=== PATIENT | male | born 1965 | race Caucasian/White ===

== ENCOUNTER 2016-09-05 17:51 | Emergency (ER) | payer MEDICAID ==
[2016-09-05 19:17] VITALS: BP 127/79
--- NOTE | 2016-09-05 20:17 | EDM.PDOCBH ---
ED HPI GENERAL MEDICAL PROBLEM - General Chief Complaint: Behavioral/Psych Stated Complaint: eval Time Seen by Provider: 09/05/16 19:30 Source of Information: Reports: Patient History Limitations: Reports: No Limitations - History of Present Illness INITIAL COMMENTS - FREE TEXT/NARRATIVE: Germain is a 51 year old male with a hx of chronic alcoholism who presents to the ED today for "medical evaluation". Patient reports he has been feeling increasingly "foggy" the last few days but has also been drinking more. Patient drinks roughly one case of beer daily. He does not want to be helped with treatment at this time, he reports he just wants to make sure his blood work looks okay. Patient does endorse a productive cough that has been increasing the last few days, although he smokes 1/2 pack - 1 pack daily. He does report occasional marijuana use, denies any other drug use. - Related Data Allergies Allergy/AdvReac Type Severity Reaction Status Date / Time No Known Allergies Allergy Verified 07/04/14 10:23 Home Meds: Home Meds ARIPiprazole [Abilify] 5 mg PO DAILY 07/03/14 [History] Ibuprofen [Motrin] 800 mg PO ASDIRECTED PRN 07/03/14 [History] busPIRone HCl [Buspirone HCl] 15 mg PO ASDIRECTED 07/03/14 [History] Past Medical History Gastrointestinal History: Reports: GERD - Infectious Disease History Infectious Disease History: Reports: Chicken Pox - Past Surgical History Other Male Surgeries/Procedures: cyst from rectum X2 Other Neurological Surgeries/Procedures: L5-S1? fusion on neck Other Musculoskeletal Surgeries/Procedures:: arthroscopic x3 left ankle Social & Family History - Tobacco Use Smoking Status *Q: Current Every Day Smoker Years of Tobacco use: 32 Packs/Tins Daily: 1.5 Used Tobacco, but Quit: No Second Hand Smoke Exposure: No - Caffeine Use Caffeine Use: Reports: None - Alcohol Use Days Per Week of Alcohol Use: 7 Number of Drinks Per Day: 24 Total Drinks Per Week: 168 Date of Last Drink: 09/05/16 Time of Last Drink: 17:00 - Recreational Drug Use Recreational Drug Use: Yes Drug Use in Last 12 Months: Yes Recreational Drug Type: Reports: Marijuana/Hashish Recreational Drug Use Frequency: Daily ED ROS GENERAL - Review of Systems Review Of Systems: ROS reveals no pertinent complaints other than HPI. ED EXAM, BEHAVIORAL HEALTH - Physical Exam Exam: See Below Exam Limited By: No Limitations General Appearance: Alert, WD/WN, No Apparent Distress Eye Exam: Bilateral Eye: EOMI Ears: Normal External Exam Throat/Mouth: Normal Inspection, Normal Oropharynx Head: Atraumatic Respiratory/Chest: No Respiratory Distress, Lungs Clear, Normal Breath Sounds Cardiovascular: Normal Peripheral Pulses, No Murmur, Tachycardia GI/Abdominal: Normal Bowel Sounds, Soft, Non-Tender Extremities: Normal Inspection Neurological: Alert, Normal Mood/Affect, CN II-XII Intact, Oriented x 3 Psychiatric: Alert, Normal Affect, Normal Cognition, Normal Mood, Oriented Skin Exam: Warm, Dry, Intact COURSE, BEHAVIORAL HEALTH COMP - Course Vital Signs: Last Vital Signs Temp 36.3 C 09/05/16 19:15 Pulse 107 H 09/05/16 19:15 Resp 20 09/05/16 19:15 BP 127/79 09/05/16 19:15 Pulse Ox 95 09/05/16 19:15 Jb is a 51 year old male with known alcoholism who presents to the ED today requesting medical evaluation for increased "fogginess" the last few days. Please refer to HPI and focused exam. Patient on exam smells strongly of ETOH but is alert and oriented and acting very appropriately, he is mildly tachycardic on arrival but is not hypertensive and does not exhibit any signs of withdrawal. Blood work including CBC, CMP and Magnesium obtained and are all rather unremarkable except for a very mildly elevated ALT and AST. CXR also obtained secondary to cough and is negative for any acute lobar infiltrate on my review. I discussed work up with patient who is ready to be discharged home. He is planning on staying with his daughter's mother who wants to help him with his drinking. Patient is well aware of [facility] and has their number if he desires to obtain outside help for his drinking. Patient was instructed he can return to the ED at any time. He verbalizes understanding and left ambulatory with his friend driving in stable condition. Orders, Labs, Meds: Active Orders 24 hr Category Date Time Status Chest 2V [CR] Stat Exams 09/05/16 19:35 Taken Laboratory Tests 09/05/16 09/05/16 09/05/16 Range/Units 19:45 19:45 19:45 WBC 7.6 (4.5-11.0) K/uL RBC 4.79 (4.30-5.90) M/uL Hgb 16.0 H D (12.0-15.0) g/dL Hct 44.5 (40.0-54.0) % MCV 93 (80-98) fL MCH 33 H (27-31) pg MCHC 36 (32-36) % Plt Count 153 (150-400) K/uL Neut % (Auto) 50 (36-66) % Lymph % (Auto) 39 (24-44) % Pitkin % (Auto) 9 H (2-6) % Eos % (Auto) 1 L (2-4) % Baso % (Auto) 1 (0-1) % Sodium 142 (140-148) mmol/L Potassium 3.7 (3.6-5.2) mmol/L Chloride 101 (100-108) mmol/L Carbon Dioxide 27 (21-32) mmol/L Anion Gap 13.8 (5.0-14.0) mmol/L BUN 5 L (7-18) mg/dL Creatinine 0.8 (0.8-1.3) mg/dL Est Cr Clr Drug Dosing 128.40 mL/min Estimated GFR (MDRD) > 60 (>60) Glucose 144 H (74-106) mg/dL Calcium 9.0 (8.5-10.1) mg/dL Magnesium 1.9 (1.8-2.4) mg/dL Total Bilirubin 0.6 (0.2-1.0) mg/dL AST 94 H D (15-37) U/L ALT 121 H (12-78) U/L Alkaline Phosphatase 79 (46-116) U/L Total Protein 9.0 H (6.4-8.2) g/dL Albumin 4.4 (3.4-5.0) g/dL Globulin 4.6 H (2.3-3.5) g/dL Albumin/Globulin Ratio 1.0 L (1.2-2.2) Departure - Departure Time of Disposition: 20:30 Disposition: Home, Self-Care 01 Condition: Good Clinical Impression: Alcohol abuse - Discharge Information Instructions: Alcohol Use Disorder Referrals: Sumit Humphrey Sr, MD [Primary Care Provider] - Forms: ED Department Discharge - My Orders Last 24 Hours: My Active Orders 09/05/16 19:35 Chest 2V [CR] Stat - Assessment/Plan Last 24 Hours: My Active Orders 09/05/16 19:35 Chest 2V [CR] Stat
--- NOTE | 2016-09-06 09:27 | CR ---
Chest 2V FINDINGS: The heart and vascular structures are normal in appearance. No infiltrates or effusions ar e demonstrated. There is a calcified granuloma of the left lower lobe. The skeletal structures are u nremarkable. IMPRESSION: 1. No acute findings.
== END 2016-09-05 20:15 | disposition home or self-care (01) ==
LOC: JP.ED 17:51
DX: F10.20 Alcohol dependence, uncomplicated (principal); F17.200 Nicotine dependence, unspecified, uncomplicated; Z79.899 Other long term (current) drug therapy
CPT/HCPCS: 36415; 71020; 71020-26; 80053; 83735; 85025; 99284

== ENCOUNTER 2018-12-21 04:59 | Emergency (ER) | payer MEDICAID ==
[2018-12-21] MEDS ORDERED: Sodium Chloride 0.9% 10 ML Syringe FLUSH PRN (05:16)
[2018-12-21] MEDS ORDERED: Aspirin 81 MG Tab.Chew PO ONE (05:17)
[2018-12-21] MEDS ORDERED: Metoprolol Tartrate 50 MG Tab PO ONE (05:18)
--- NOTE | 2018-12-21 05:24 | EDM.PDOC ---
ED HPI GENERAL MEDICAL PROBLEM - General Chief Complaint: Cardiovascular Problem Stated Complaint: CHEST PAIN Time Seen by Provider: 12/21/18 05:05 Source of Information: Reports: Patient, Old Records, RN History Limitations: Reports: No Limitations - History of Present Illness INITIAL COMMENTS - FREE TEXT/NARRATIVE: 53 yo male 2 ppd smoker presents with chest pain that he has had for about a year. He has a chronic cough with some sputum production. No fever or SOB. Pain is worse with exertion or lying down. Also, admits to fairly heavy ETOH use. Has not been evaluated for this pain in the past. No calf pain or LE edema. No nausea. Is on no meds. Is unaware of his heart beating fast. Has drank up to a case of beer/day. Smokes marijuana as well as cigarettes. Onset: Other (many months ago, is worse today) Duration: Week(s): (and months), Getting Worse Location: Reports: Chest Quality: Reports: Pressure Severity: Moderate Improves with: Reports: Rest Worsens with: Reports: Other (lying or exertion) Context: Reports: Other (See HPI) Associated Symptoms: Reports: Chest Pain, Cough. 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 fusion on neck Other Musculoskeletal Surgeries/Procedures:: arthroscopic x3 left ankle Social & Family History - Tobacco Use Smoking Status *Q: Current Every Day Smoker Years of Tobacco use: 30 Packs/Tins Daily: 2 - Caffeine Use Caffeine Use: Reports: None - Alcohol Use Date of Last Drink: 12/21/18 Time of Last Drink: 04:15 - Recreational Drug Use Recreational Drug Use: No ED ROS GENERAL - Review of Systems Review Of Systems: See Below Constitutional: Reports: No Symptoms HEENT: Reports: No Symptoms Respiratory: Reports: Cough, Sputum (swallows). Denies: Shortness of Breath, Wheezing, Pleuritic Chest Pain Cardiovascular: Reports: Chest Pain. Denies: Claudication, Dyspnea on Exertion , Edema, Palpitations (unaware), Syncope Endocrine: Reports: No Symptoms GI/Abdominal: Reports: No Symptoms : Reports: No Symptoms Musculoskeletal: Reports: Back Pain (chronic). Denies: Leg Pain Skin: Reports: No Symptoms Neurological: Reports: Numbness (in both feet for about a year). Denies: Confusion, Dizziness, Headache, Seizure, Syncope, Trouble Speaking, Difficulty Walking, Weakness, Change in Speech, Gait Disturbance ED EXAM, GENERAL - Physical Exam Exam: See Below Exam Limited By: No Limitations General Appearance: Alert, WD/WN, No Apparent Distress Eye Exam: Bilateral Eye: Normal Inspection Ears: Normal External Exam, Normal Canal, Hearing Grossly Normal Ear Exam: Bilateral Ear: Auricle Normal, Canal Normal Nose: Normal Inspection, No Blood Throat/Mouth: Normal Inspection, Normal Lips, Normal Oropharynx, Normal Voice, No Airway Compromise Head: Atraumatic, Normocephalic Neck: Normal Inspection Respiratory/Chest: No Respiratory Distress, No Accessory Muscle Use, Chest Non- Tender, Rhonchi (scattered). No: Wheezing, Accessory Muscle Use, Retractions Cardiovascular: Regular Rate, Rhythm, No Edema, Tachycardia GI/Abdominal: Normal Bowel Sounds, Soft, Non-Tender, No Distention Back Exam: Normal Inspection. No: CVA Tenderness (R), CVA Tenderness (L) Extremities: Normal Inspection, Normal Range of Motion, Non-Tender, No Pedal Edema. No: Pedal Edema, Allen's Sign, Leg Pain, Limited Range of Motion, Increased Warmth, Mottled, Redness Neurological: Alert, Oriented, CN II-XII Intact, Normal Cognition, No Motor/ Sensory Deficits Psychiatric: Normal Affect, Normal Mood Skin Exam: Warm, Dry, Intact, Normal Color, No Rash EKG INTERPRETATION EKG Date: 12/21/18 Time: 05:05 Rhythm: NSR Rate (Beats/Min): 122 Trilla: RAD-Right Trilla Deviation P-Wave: Present QRS: Normal ST-T: Depressed (slight depression in anterolateral leads) QT: Normal Comparison: NA - No Prior EKG Course - Vital Signs Text/Narrative:: Pain resolved in the ER with no tx and no change in his underlying tachycardia. Dr. 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 accepted @ [facility] [place], [facility] [place] Last Recorded V/S: Last Vital Signs Temp 37.1 C 12/21/18 05:17 Pulse 95 12/21/18 06:10 Resp 18 12/21/18 06:10 BP 147/90 H 12/21/18 06:10 Pulse Ox 92 L 12/21/18 06:10 - Orders/Labs/Meds Orders: Active Orders 24 hr Category Date Time Status Cardiac Monitoring [RC] .As Directed Care 12/21/18 05:17 Active EKG Documentation Completion [RC] ASDIRECTED Care 12/21/18 05:17 Active Chest 2V [CR] Stat Exams 12/21/18 05:18 Taken Heparin Sodium/D5W [Heparin 25,000 Units in D5W 500 ML] Med 12/21/18 07:00 Ordered 25,000 units in 500 ml IV TITRATE Sodium Chloride 0.9% [Saline Flush] Med 12/21/18 05:16 Active 10 ml FLUSH ASDIRECTED PRN Saline Lock Insert [OM.PC] Routine Oth 12/21/18 05:16 Ordered EKG 12 Lead [EK] Routine Ther 12/21/18 05:16 Ordered Medication Orders Heparin Sodium/Dextrose (Heparin 25,000 Units In D5w 500 Ml) 25,000 units in 500 mls @ 900 mls/hr IV TITRATE YANY Sodium Chloride (Saline Flush) 10 ml FLUSH ASDIRECTED PRN PRN Reason: Keep Vein Open Last Admin: 12/21/18 05:24 Dose: 10 ml Labs: Laboratory Tests 12/21/18 12/21/18 12/21/18 Range/Units 05:18 05:18 05:18 WBC 17.2 H (4.5-11.0) K/uL RBC 4.30 (4.30-5.90) M/uL Hgb 13.3 D (12.0-15.0) g/dL Hct 38.7 L (40.0-54.0) % MCV 90 (80-98) fL MCH 31 (27-31) pg MCHC 34 (32-36) % Plt Count 142 L (150-400) K/uL D-Dimer, Quantitative 280 (0.0-400.0) ng/mL Sodium 137 L (140-148) mmol/L Potassium 3.8 (3.6-5.2) mmol/L Chloride 100 (100-108) mmol/L Carbon Dioxide 24 (21-32) mmol/L Anion Gap 16.8 H (5.0-14.0) mmol/L BUN 7 (7-18) mg/dL Creatinine 0.7 L (0.8-1.3) mg/dL Est Cr Clr Drug Dosing 144.19 mL/min Estimated GFR (MDRD) > 60 (>60) Glucose 121 H (74-106) mg/dL Calcium 9.4 (8.5-10.1) mg/dL Troponin I < 0.017 (0.000-0.056) ng/mL C-Reactive Protein (0.0-0.3) mg/dL 12/21/18 Range/Units 06:31 WBC (4.5-11.0) K/uL RBC (4.30-5.90) M/uL Hgb (12.0-15.0) g/dL Hct (40.0-54.0) % MCV (80-98) fL MCH (27-31) pg MCHC (32-36) % Plt Count (150-400) K/uL D-Dimer, Quantitative (0.0-400.0) ng/mL Sodium (140-148) mmol/L Potassium (3.6-5.2) mmol/L Chloride (100-108) mmol/L Carbon Dioxide (21-32) mmol/L Anion Gap (5.0-14.0) mmol/L BUN (7-18) mg/dL Creatinine (0.8-1.3) mg/dL Est Cr Clr Drug Dosing mL/min Estimated GFR (MDRD) (>60) Glucose (74-106) mg/dL Calcium (8.5-10.1) mg/dL Troponin I (0.000-0.056) ng/mL C-Reactive Protein 5.43 H (0.0-0.3) mg/dL Meds: Medications Generic Name Dose Route Start Last Admin Trade Name Freq PRN Reason Stop Dose Admin Heparin Sodium/Dextrose 25,000 units in 500 mls @ 900 mls/hr 12/21/18 07:00 Heparin 25,000 Units In D5w 500 Ml IV TITRATE YANY Sodium Chloride 10 ml 12/21/18 05:16 12/21/18 05:24 Saline Flush FLUSH 10 ml ASDIRECTED PRN Administration Keep Vein Open Discontinued Medications Generic Name Dose Route Start Last Admin Trade Name Eboni PRN Reason Stop Dose Admin Aspirin 324 mg 12/21/18 05:17 12/21/18 05:24 Aspirin PO 12/21/18 05:18 324 mg ONETIME ONE Administration Clopidogrel Bisulfate 600 mg 12/21/18 06:58 Plavix PO 12/21/18 06:59 ONETIME ONE Heparin Sodium (Porcine) 4,000 units 12/21/18 06:59 Heparin Sodium IVPUSH 12/21/18 07:00 ONETIME ONE Metoprolol Tartrate 50 mg 12/21/18 05:18 12/21/18 05:23 Lopressor PO 12/21/18 05:19 50 mg ONETIME ONE Administration - Radiology Interpretation Free Text/Narrative:: CXR- Departure - Departure Time of Disposition: 07:03 Disposition: DC/Tfer to Acute Hospital 02 Reason for Transfer *Q: Other Condition: Fair Clinical Impression: Exertional chest pain Referrals: PCP,None [Primary Care Provider] - Forms: ED Department Discharge Additional Instructions: ALS transfer to [facility] - My Orders Last 24 Hours: My Active Orders 12/21/18 05:16 Sodium Chloride 0.9% [Saline Flush] 10 ml FLUSH ASDIRECTED PRN Saline Lock Insert [OM.PC] Routine EKG 12 Lead [EK] Routine 12/21/18 05:17 Cardiac Monitoring [RC] .As Directed EKG Documentation Completion [RC] ASDIRECTED 12/21/18 05:18 Chest 2V [CR] Stat 12/21/18 07:00 Heparin Sodium/D5W [Heparin 25,000 Units in D5W 500 ML] 25,000 units in 500 ml IV TITRATE - Assessment/Plan Last 24 Hours: My Active Orders 12/21/18 05:16 Sodium Chloride 0.9% [Saline Flush] 10 ml FLUSH ASDIRECTED PRN Saline Lock Insert [OM.PC] Routine EKG 12 Lead [EK] Routine 12/21/18 05:17 Cardiac Monitoring [RC] .As Directed EKG Documentation Completion [RC] ASDIRECTED 12/21/18 05:18 Chest 2V [CR] Stat 12/21/18 07:00 Heparin Sodium/D5W [Heparin 25,000 Units in D5W 500 ML] 25,000 units in 500 ml IV TITRATE
[2018-12-21] MEDS ORDERED: Clopidogrel 75 MG Tab PO ONE (06:58)
[2018-12-21] MEDS ORDERED: Heparin Sodium 5,000 Units/ML Vial IVPUSH ONE (06:59)
[2018-12-21] MEDS ORDERED: Heparin Sodium/D5W 25,000 UNITS/500 ML BAG IV SCH ×2 (07:00→07:15)
[2018-12-21 07:25] VITALS: BP 125/80; PULSE 92
--- NOTE | 2018-12-21 08:01 | CRLCR ---
Indication: Chest pain. Technique: Chest 2 views Comparison: 09/05/2016. Findings: Cardiomediastinal silhouette is unremarkable. Stable calcified granuloma in the left lung base. No focal lung consolidation, pleural effusion or pneumothorax. Cardiac leads overlie the chest. Impression: No acute cardiopulmonary abnormality. Dictated by Wayne Schofield MD @ Dec 21 2018 7:58AM Signed by Dr. Wayne Schofield @ Dec 21 2018 8:00AM
== END 2018-12-21 07:46 ==
LOC: JP.ED 04:59
DX: R07.89 Other chest pain (principal); F17.210 Nicotine dependence, cigarettes, uncomplicated
CPT/HCPCS: 36415; 71046; 80048; 84484; 85027; 85379; 86140; 93005; 96374; 99285; A9270; J1644

== ENCOUNTER 2019-06-08 10:25 | Emergency (ER) | payer MEDICAID ==
--- NOTE | 2019-06-08 10:47 | EDM.PDOC ---
ED HPI GENERAL MEDICAL PROBLEM - General Chief Complaint: Chest Pain Stated Complaint: CHEST PAIN VIA [facility]TH Time Seen by Provider: 06/08/19 10:35 Source of Information: Reports: Patient, EMS, Old Records History Limitations: Reports: No Limitations - History of Present Illness INITIAL COMMENTS - FREE TEXT/NARRATIVE: 54 yo male presents with R lateral chest pain that began about 0300h today as he was getting ready for bed. Sx's worse with lying down. Some increased SOB with lying also. No fever. No nausea, diaphoresis or radiation. No injury to this area. Has a known hx of CAD with CABG x 4 vessels in [facility] this past 12/2018. Is still smoking. Has had these same sx's for about a mos on and off and has not done anything about it. Called EMS today due to these sx's persisting longer than in the past. EMS gave NTG SL x 1 with a reduction in his pain, but not resolution. Does not have NTG at home. Onset: Today, Sudden Onset Date: 06/08/19 Onset Time: 03:00 Duration: Hour(s):, Improving (on arrival after NTG) Location: Reports: Chest (right lateral) Quality: Reports: Dull Severity: Mild (was worse earlier) Improves with: Reports: Medication (NTG) Worsens with: Reports: Other (unknown, getting worse over time) Context: Reports: Other (See HPI) Associated Symptoms: Reports: Chest Pain (R lateral), Shortness of Breath ( especially orthopnea). Denies: Cough, Diaphoresis, Fever/Chills, Nausea/ Vomiting, Rash Treatments [employer]: Reports: Nitroglycerin Chest Pain Score (Numeric/FACES): 3 - Related Data Allergies Allergy/AdvReac Type Severity Reaction Status Date / Time No Known Allergies Allergy Verified 06/08/19 10:42 Home Meds: Home Meds Folic Acid 1 mg PO DAILY 06/08/19 [History] Metoprolol Tartrate 75 mg PO BID 06/08/19 [History] Pramipexole [Mirapex] 1 tab PO ASDIRECTED 06/08/19 [History] atorvaSTATin [Lipitor] 40 mg PO BEDTIME 06/08/19 [History] Past Medical History Cardiovascular History: Reports: Hypertension, SOB on Exertion Respiratory History: Reports: SOB Gastrointestinal History: Reports: GERD Musculoskeletal History: Reports: Neck Pain, Chronic Neurological History: Reports: Head Trauma Psychiatric History: Reports: Addiction, Anxiety, Depression, Other (See Below) Other Psychiatric History: ETOH - Infectious Disease History Infectious Disease History: Reports: Chicken Pox - Past Surgical History Other Male Surgeries/Procedures: cyst from rectum X2 Other Neurological Surgeries/Procedures: L5-S1? fusion on neck Other Musculoskeletal Surgeries/Procedures:: arthroscopic x3 left ankle Social & Family History - Caffeine Use Caffeine Use: Reports: None ED ROS GENERAL - Review of Systems Review Of Systems: See Below Constitutional: Reports: No Symptoms HEENT: Reports: No Symptoms Respiratory: Reports: Shortness of Breath (mostly with lying, mild) Cardiovascular: Reports: Chest Pain, Orthopnea. Denies: Dyspnea on Exertion, Edema, Palpitations Endocrine: Reports: No Symptoms GI/Abdominal: Reports: No Symptoms : Reports: No Symptoms Musculoskeletal: Reports: No Symptoms Skin: Reports: No Symptoms Neurological: Reports: No Symptoms ED EXAM, GENERAL - Physical Exam Exam: See Below Exam Limited By: No Limitations General Appearance: Alert, WD/WN, No Apparent Distress Eye Exam: Bilateral Eye: Normal Inspection Ears: Normal External Exam, Normal Canal, Hearing Grossly Normal Ear Exam: Bilateral Ear: Auricle Normal, Canal Normal Nose: Normal Inspection, No Blood Throat/Mouth: Normal Inspection, Normal Lips, Normal Oropharynx, Normal Voice, No Airway Compromise Head: Atraumatic, Normocephalic Neck: Normal Inspection Respiratory/Chest: No Respiratory Distress, No Accessory Muscle Use, Rhonchi ( both lung bases), Other (no chest wall pain). No: Respiratory Distress, Wheezing, Accessory Muscle Use, Retractions Cardiovascular: Regular Rate, Rhythm, No Edema GI/Abdominal: Normal Bowel Sounds, Soft, Non-Tender, No Distention Back Exam: Normal Inspection. No: CVA Tenderness (R), CVA Tenderness (L) Extremities: Normal Inspection, Normal Range of Motion, Non-Tender, No Pedal Edema Neurological: Alert, Oriented, CN II-XII Intact, Normal Cognition, No Motor/ Sensory Deficits Psychiatric: Normal Affect, Normal Mood Skin Exam: Warm, Dry, Intact, Normal Color, No Rash EKG INTERPRETATION EKG Date: 06/08/19 Time: 10:50 Rhythm: NSR Rate (Beats/Min): 58 [place]: Normal P-Wave: Present QRS: RBBB ST-T: Normal QT: Normal Comparison: Change From Previous EKG (Subtle ST elevation III, AVF. ST subtle depression II.) Course - Vital Signs Last Recorded V/S: Last Vital Signs Temp 36.3 C 06/08/19 10:44 Pulse 51 L 06/08/19 11:28 Resp 16 06/08/19 11:28 BP 109/67 06/08/19 11:28 Pulse Ox 96 06/08/19 11:28 - Orders/Labs/Meds Orders: Active Orders 24 hr Category Date Time Status Cardiac Monitoring [RC] .As Directed Care 06/08/19 10:34 Active EKG Documentation Completion [RC] ASDIRECTED Care 06/08/19 10:34 Active UA W/MICROSCOPIC [URIN] Stat Lab 06/08/19 10:41 Ordered EKG 12 Lead [EK] Routine Ther 06/08/19 10:34 Ordered Labs: Laboratory Tests 06/08/19 06/08/19 06/08/19 Range/Units 11:00 11:00 11:00 WBC 15.5 H (4.5-11.0) K/uL RBC 4.06 L (4.30-5.90) M/uL Hgb 12.8 (12.0-15.0) g/dL Hct 39.4 L (40.0-54.0) % MCV 97 (80-98) fL MCH 32 H (27-31) pg MCHC 33 (32-36) % Plt Count 192 (150-400) K/uL D-Dimer, Quantitative 268 (0.0-400.0) ng/mL Sodium 138 L (140-148) mmol/L Potassium 3.9 (3.6-5.2) mmol/L Chloride 102 (100-108) mmol/L Carbon Dioxide 23 (21-32) mmol/L Anion Gap 16.9 H (5.0-14.0) mmol/L BUN 11 D (7-18) mg/dL Creatinine 0.7 L (0.8-1.3) mg/dL Est Cr Clr Drug Dosing 142.51 mL/min Estimated GFR (MDRD) > 60 (>60) Glucose 126 H (74-106) mg/dL Calcium 8.3 L (8.5-10.1) mg/dL Troponin I < 0.017 (0.000-0.056) ng/mL NT-Pro-B Natriuret Pep (5-125) pg/mL Ethyl Alcohol mg/dL 06/08/19 06/08/19 Range/Units 11:04 11:04 WBC (4.5-11.0) K/uL RBC (4.30-5.90) M/uL Hgb (12.0-15.0) g/dL Hct (40.0-54.0) % MCV (80-98) fL MCH (27-31) pg MCHC (32-36) % Plt Count (150-400) K/uL D-Dimer, Quantitative (0.0-400.0) ng/mL Sodium (140-148) mmol/L Potassium (3.6-5.2) mmol/L Chloride (100-108) mmol/L Carbon Dioxide (21-32) mmol/L Anion Gap (5.0-14.0) mmol/L BUN (7-18) mg/dL Creatinine (0.8-1.3) mg/dL Est Cr Clr Drug Dosing mL/min Estimated GFR (MDRD) (>60) Glucose (74-106) mg/dL Calcium (8.5-10.1) mg/dL Troponin I (0.000-0.056) ng/mL NT-Pro-B Natriuret Pep 44 (5-125) pg/mL Ethyl Alcohol 246 mg/dL Meds: Medications Discontinued Medications Generic Name Dose Route Start Last Admin Trade Name Freq PRN Reason Stop Dose Admin Aspirin 324 mg 06/08/19 10:48 06/08/19 10:52 Aspirin PO 06/08/19 10:49 324 mg ONETIME ONE Administration Ketorolac Tromethamine 30 mg 06/08/19 11:48 06/08/19 11:57 Toradol IVPUSH 06/08/19 11:49 30 mg ONETIME ONE Administration - Radiology Interpretation Free Text/Narrative:: CXR-IMPRESSION: No acute chest findings and no change. Dictated by Lakhwinder Norris MD @ Jun 08 2019 12:01PM - Re-Assessments/Exams Free Text/Narrative Re-Assessment/Exam: 06/08/19 12:19 Sleeping soundly Free Text/Narrative Re-Assessment/Exam: 06/08/19 12:38 Sx's now gone. Departure - Departure Time of Disposition: 12:40 Disposition: Home, Self-Care 01 Condition: Fair Clinical Impression: Tobacco abuse, Atypical chest pain Alcohol intoxication Qualifiers: Complication of substance-induced condition: with unspecified complication Qualified Code(s): F10.929 - Alcohol use, unspecified with intoxication, unspecified Instructions: Alcohol Intoxication, [id number], Nonspecific Chest Pain, Adult , [id number], Steps to Quit Smoking Referrals: PCP,None [Primary Care Provider] - Forms: ED Department Discharge Additional Instructions: Continue your regular medications. Take acetaminophen 1000 mg every 6 hrs as needed for pain relief. F/U with Dr. Pollock within the week. Return if worse. Sepsis Event Note - Focused Exam Vital Signs: Vital Signs Temp Pulse Resp BP Pulse Ox 06/08/19 11:28 51 L 16 109/67 96 06/08/19 10:57 55 L 16 118/70 96 06/08/19 10:44 36.3 C 58 L 16 105/48 L 94 L 06/08/19 10:35 36.3 C 58 L 16 105/48 L 94 L Date Exam was Performed: 06/08/19 Time Exam was Performed: 12:38 - My Orders Last 24 Hours: My Active Orders 06/08/19 10:34 Cardiac Monitoring [RC] .As Directed EKG Documentation Completion [RC] ASDIRECTED EKG 12 Lead [EK] Routine 06/08/19 10:41 UA W/MICROSCOPIC [URIN] Stat - Assessment/Plan Last 24 Hours: My Active Orders 06/08/19 10:34 Cardiac Monitoring [RC] .As Directed EKG Documentation Completion [RC] ASDIRECTED EKG 12 Lead [EK] Routine 06/08/19 10:41 UA W/MICROSCOPIC [URIN] Stat
[2019-06-08] MEDS ORDERED: Aspirin 81 MG Tab.Chew PO ONE (10:48)
[2019-06-08] MEDS ORDERED: Ketorolac 30 MG/ML SDV IVPUSH ONE (11:48)
--- NOTE | 2019-06-08 12:04 | CRLCR ---
TECHNIQUE: PA and lateral chest. INDICATION: Chest pain. COMPARISON: 12/21/2018 chest x-ray. FINDINGS: Lungs are clear. Benign calcified granuloma in the left lower lobe. Heart size and pulmonary vascularity are normal. Sternotomy. No effusion or pneumothorax. IMPRESSION: No acute chest findings and no change. Dictated by Lakhwinder Norris MD @ Jun 08 2019 12:01PM Signed by Dr. Lakhwinder Norris @ Jun 08 2019 12:02PM
[2019-06-08 13:18] VITALS: BP 119/75; PULSE 68
== END 2019-06-08 13:29 | disposition home or self-care (01) ==
LOC: JP.ED 10:31
DX: R07.89 Other chest pain (principal); F10.129 Alcohol abuse with intoxication, unspecified; Y90.8 Blood alcohol level of 240 mg/100 ml or more; F17.200 Nicotine dependence, unspecified, uncomplicated; K21.9 Gastro-esophageal reflux disease without esophagitis; I10 Essential (primary) hypertension; Z79.899 Other long term (current) drug therapy
CPT/HCPCS: 36415; 71046; 80048; 80307; 83880; 84484; 85027; 85379; 93005; 96374; 99285; A9270; J1885

== ENCOUNTER 2020-09-25 16:47 | Emergency (ER) | payer MEDICAID ==
[2020-09-25] MEDS ORDERED: Pseudoephedrine 30 MG Tab PO ONE (18:03)
--- NOTE | 2020-09-25 18:06 | EDM.PDOC ---
ED HPI GENERAL MEDICAL PROBLEM - General Stated Complaint: EAR INFECTION Time Seen by Provider: 09/25/20 17:57 Source of Information: Reports: Patient, RN Notes Reviewed History Limitations: Reports: No Limitations - History of Present Illness INITIAL COMMENTS - FREE TEXT/NARRATIVE: 55-year-old gentleman presents emergency department today complaint of ear pain and fullness, he was recently treated for an ear infection treated with amoxicillin for 7-day course he does admit to using heavy use of alcohol he is trying to stop and dry out from the alcohol has not had a drink yet today. He states he feels congested has some dizziness feels like his equilibrium is off does hear his ears popping when he yawns he has tried allergy pills without any relief - Related Data Allergies Allergy/AdvReac Type Severity Reaction Status Date / Time No Known Allergies Allergy Verified 06/27/20 08:11 Home Meds: Home Meds Folic Acid 1 mg PO DAILY 06/08/19 [History] Metoprolol Tartrate 50 mg PO BID 06/08/19 [History] Pramipexole [Mirapex] 1 tab PO ASDIRECTED 06/08/19 [History] atorvaSTATin [Lipitor] 40 mg PO BEDTIME 06/08/19 [History] Albuterol Sulfate [Proair Hfa] 2 puff IH Q4H PRN 06/27/20 [History] Aspirin 325 mg PO DAILY 06/27/20 [History] Cyanocobalamin (Vitamin B-12) [Vitamin B-12] 250 mcg PO DAILY 06/27/20 [History] Ibuprofen 800 mg PO Q8H PRN 06/27/20 [History] Melatonin 3 mg PO BEDTIME PRN 06/27/20 [History] Omeprazole Magnesium [Prilosec Otc] 20 mg PO QAM 06/27/20 [History] Ondansetron [Ondansetron ODT] 4 mg PO Q8HR PRN 06/27/20 [History] Sucralfate [Carafate] 1 gm PO ACBED 06/27/20 [History] Thiamine [Vitamin B-1] 100 mg PO BEDTIME 06/27/20 [History] diazePAM [Valium] 10 mg PO ASDIRECTED PRN 06/27/20 [History] Past Medical History Cardiovascular History: Reports: Hypertension, SOB on Exertion Respiratory History: Reports: SOB Gastrointestinal History: Reports: GERD Musculoskeletal History: Reports: Neck Pain, Chronic Neurological History: Reports: Head Trauma Psychiatric History: Reports: Addiction, Anxiety, Depression, Other (See Below) Other Psychiatric History: ETOH - Infectious Disease History Infectious Disease History: Reports: Chicken Pox - Past Surgical History Other Male Surgeries/Procedures: cyst from rectum X2 Other Neurological Surgeries/Procedures: L5-S1? fusion on neck Other Musculoskeletal Surgeries/Procedures:: arthroscopic x3 left ankle Social & Family History - Caffeine Use Caffeine Use: Reports: None ED ROS ENT - Review of Systems Review Of Systems: See Below Constitutional: Denies: Fever, Chills HEENT: Reports: Ear Pain, Sinus Problem Respiratory: Reports: No Symptoms Cardiovascular: Reports: No Symptoms GI/Abdominal: Reports: No Symptoms Psychiatric: Reports: Other (Alcohol abuse and dependence) ED EXAM, ENT - Physical Exam Exam: See Below Exam Limited By: No Limitations General Appearance: Alert, WD/WN, No Apparent Distress Ears: Normal External Exam, Normal Canal, Hearing Grossly Normal, Normal TMs Nose: Normal Inspection, Normal Mucousa, No Blood Mouth/Throat: Normal Inspection, Normal Gums, Normal Lips, Normal Oropharynx, Normal Teeth Head: Atraumatic, Normocephalic Neck: Normal Inspection, Supple, Non-Tender, Full Range of Motion Respiratory/Chest: No Respiratory Distress, Lungs Clear, Normal Breath Sounds, No Accessory Muscle Use, Chest Non-Tender Cardiovascular: Tachycardia Course - Vital Signs Last Recorded V/S: Last Vital Signs Temp 98.1 F 09/25/20 17:13 Pulse 120 H 09/25/20 17:13 Resp 16 09/25/20 17:13 BP 154/100 H 09/25/20 17:13 Pulse Ox 95 09/25/20 17:13 Departure - Departure Time of Disposition: 18:06 Disposition: Home, Self-Care 01 Condition: Fair Clinical Impression: Sinus congestion - Discharge Information Referrals: Wayne Pollock MD [Primary Care Provider] - Additional Instructions: Try the pseudoephedrine at home, please followup with your primary care provider in 3-5 days if not better, please call return to the emergency department with worsening of symptoms. Sepsis Event Note (ED) - Focused Exam Vital Signs: Vital Signs Temp Pulse Resp BP Pulse Ox 09/25/20 17:13 98.1 F 120 H 16 154/100 H 95 - Assessment/Plan Plan: Assessment Acuity = acute Site and laterality = sinus congestion Etiology = unknown Manifestations = dizziness Location of injury = Home Lab values = none Plan Like to try empiric treatment with pseudoephedrine for the next couple days follow-up primary care 3 to 5 days if no improvement. I recommend continue to try and wean off alcohol This note was dictated using [employer] voice recognition software please call with any questions on syntax or grammar.
[2020-09-25 18:21] VITALS: BP 156/92
[2020-09-25 18:27] VITALS: PULSE 101
== END 2020-09-25 18:35 | disposition home or self-care (01) ==
LOC: JP.ED 16:47
DX: J34.89 Other specified disorders of nose and nasal sinuses (principal); I10 Essential (primary) hypertension; K21.9 Gastro-esophageal reflux disease without esophagitis; Z79.82 Long term (current) use of aspirin; Z79.899 Other long term (current) drug therapy
CPT/HCPCS: 99283; A9270

== ENCOUNTER 2021-01-02 23:31 | Emergency (ER) | payer MEDICAID ==
[2021-01-03] MEDS ORDERED: MVI, Adult with Vitamin K 10 ML, Thiamine 100 MG, Folic Acid 1 MG, Magnesium Sulfate 3 ... IV SCH ×5 (00:15)
--- NOTE | 2021-01-03 00:21 | EDM.PDOC ---
ED HPI GENERAL MEDICAL PROBLEM - General Chief Complaint: Neurological Problem Stated Complaint: POSSIBLE STROKE? Time Seen by Provider: 01/02/21 23:50 Source of Information: Reports: Patient, Family History Limitations: Reports: No Limitations - History of Present Illness INITIAL COMMENTS - FREE TEXT/NARRATIVE: 55-year-old male arrives with a variety of complaints including intermittent visual problems, dizziness, unsteadiness when walking, persistent nausea and wretching. The visual complaints and dizziness and unsteadiness has been for the past 2 days, he is also complaining of some intermittent chest pain for the past 2 days. He is a chronic alcoholic and has been drinking daily for the past 2 weeks, also been using methamphetamine. He does have significant coronary artery disease however and received a four-vessel bypass surgery 2 years ago. Continues to drink because he detoxes "very bad". Onset: Unknown/Unsure Duration: Waxing/Waning (Symptoms have been waxing and waning for at least the last 2 days and up to the last 2 weeks) Associated Symptoms: Reports: Confusion, Chest Pain, Cough, Headaches, Malaise, Nausea/Vomiting, Shortness of Breath, Weakness, Other (Almost everything in his review of systems other than fever is positive) Middle Mid-Sternal Chest Pain Score (Numeric/FACES): 4 - Related Data Allergies Allergy/AdvReac Type Severity Reaction Status Date / Time No Known Allergies Allergy Verified 01/02/21 23:43 Home Meds: Home Meds Folic Acid 1 mg PO DAILY 06/08/19 [History] Metoprolol Tartrate 50 mg PO BID 06/08/19 [History] Pramipexole [Mirapex] 1 tab PO ASDIRECTED 06/08/19 [History] atorvaSTATin [Lipitor] 40 mg PO BEDTIME 06/08/19 [History] Albuterol Sulfate [Proair Hfa] 2 puff IH Q4H PRN 06/27/20 [History] Aspirin 325 mg PO DAILY 06/27/20 [History] Cyanocobalamin (Vitamin B-12) [Vitamin B-12] 250 mcg PO DAILY 06/27/20 [History] Ibuprofen 800 mg PO Q8H PRN 06/27/20 [History] Melatonin 3 mg PO BEDTIME PRN 06/27/20 [History] Omeprazole Magnesium [Prilosec Otc] 20 mg PO QAM 06/27/20 [History] Ondansetron [Ondansetron ODT] 4 mg PO Q8HR PRN 06/27/20 [History] Sucralfate [Carafate] 1 gm PO ACBED 06/27/20 [History] Thiamine [Vitamin B-1] 100 mg PO BEDTIME 06/27/20 [History] diazePAM [Valium] 10 mg PO ASDIRECTED PRN 06/27/20 [History] Past Medical History Cardiovascular History: Reports: Hypertension, SOB on Exertion Respiratory History: Reports: SOB Gastrointestinal History: Reports: GERD Musculoskeletal History: Reports: Neck Pain, Chronic Neurological History: Reports: Head Trauma Psychiatric History: Reports: Addiction, Anxiety, Depression, Other (See Below) Other Psychiatric History: ETOH - Infectious Disease History Infectious Disease History: Reports: Chicken Pox - Past Surgical History HEENT Surgical History: Reports: Naso-Sinus Surgery Cardiovascular Surgical History: Reports: Coronary Artery Bypass Other Male Surgeries/Procedures: cyst from rectum X2 Neurological Surgical History: Reports: Spinal Fusion Other Neurological Surgeries/Procedures: L5-S1? fusion on neck Musculoskeletal Surgical History: Reports: Other (See Below) Other Musculoskeletal Surgeries/Procedures:: arthroscopic x3 left ankle Social & Family History - Tobacco Use Tobacco Use Status *Q: Current Every Day Tobacco User Years of Tobacco use: 40 Packs/Tins Daily: 1 - Caffeine Use Caffeine Use: Reports: Soda - Alcohol Use Days Per Week of Alcohol Use: 7 Number of Drinks Per Day: 12 Total Drinks Per Week: 84 - Recreational Drug Use Recreational Drug Use: Yes Drug Use in Last 12 Months: Yes Recreational Drug Type: Reports: Marijuana/Hashish, Methamphetamine Recreational Drug Use Frequency: Daily ED ROS GENERAL - Review of Systems Review Of Systems: See Below Constitutional: Reports: Malaise, Decreased Appetite. Denies: Fever, Chills HEENT: Reports: Vision Change (Intermittent blurriness) Respiratory: Reports: Shortness of Breath Cardiovascular: Reports: Chest Pain, Lightheadedness. Denies: Palpitations GI/Abdominal: Reports: Nausea, Vomiting. Denies: Diarrhea : Reports: No Symptoms Skin: Reports: Other (Diaphoretic easily, bruises easily) Neurological: Reports: Dizziness, Headache, Other (Blurry vision) ED EXAM, GENERAL - Physical Exam Exam: See Below Exam Limited By: No Limitations General Appearance: Alert, No Apparent Distress Eye Exam: Bilateral Eye: Conjunctival Injection, EOMI, PERRL Head: Atraumatic Neck: Supple, Non-Tender Respiratory/Chest: Wheezing (Patient has a few scattered expiratory wheezes but good air movement, no basilar rales or rhonchi) Cardiovascular: Regular Rate, Rhythm, No Murmur, Tachycardia GI/Abdominal: Soft, Non-Tender Extremities: No: Pedal Edema Neurological: Alert, Oriented, No Motor/Sensory Deficits Psychiatric: Normal Affect, Normal Mood Skin Exam: Warm, Dry #1 Interpretation EKG Date: 01/02/21 Rhythm: NSR Rate (Beats/Min): 120 QRS: Normal ST-T: Other (Borderline ST elevation in the inferior leads that is consistent with his previous EKG done here within the last 2 years) QT: Normal (QT is borderline) Course - Vital Signs Last Recorded V/S: Last Vital Signs Temp 97.6 F 01/02/21 23:50 Pulse 105 H 01/02/21 23:50 Resp 20 01/02/21 23:50 BP 140/83 01/02/21 23:50 Pulse Ox 93 L 01/02/21 23:50 - Orders/Labs/Meds Orders: Active Orders 24 hr Category Date Time Status Isolation [COMM] Stat Oth 01/03/21 00:21 Ordered EKG 12 Lead [EK] Routine Ther 01/03/21 00:10 Ordered Labs: Laboratory Tests 01/03/21 01/03/21 01/03/21 Range/Units 00:05 00:05 00:05 WBC 9.1 (4.5-11.0) K/uL RBC 4.28 L (4.30-5.90) M/uL Hgb 14.0 (12.0-15.0) g/dL Hct 41.1 (40.0-54.0) % MCV 96 (80-98) fL MCH 33 H (27-31) pg MCHC 34 (32-36) % Plt Count 190 (150-400) K/uL Neut % (Auto) 73.4 H (36-66) % Lymph % (Auto) 16.2 L (24-44) % Wagoner % (Auto) 8.7 H (2-6) % Eos % (Auto) 1.3 L (2-4) % Baso % (Auto) 0.4 (0-1) % Sodium 136 L (140-148) mmol/L Potassium 3.7 (3.6-5.2) mmol/L Chloride 98 L (100-108) mmol/L Carbon Dioxide 20 L (21-32) mmol/L Anion Gap 21.7 H (5.0-14.0) mmol/L BUN 20 H D (7-18) mg/dL Creatinine 0.9 (0.8-1.3) mg/dL Est Cr Clr Drug Dosing 109.54 mL/min Estimated GFR (MDRD) > 60 (>60) Glucose 110 H (74-106) mg/dL Calcium 8.9 (8.5-10.1) mg/dL Total Bilirubin 2.0 H D (0.2-1.0) mg/dL AST 89 H (15-37) U/L ALT 50 (12-78) U/L Alkaline Phosphatase 67 (46-116) U/L Troponin I < 0.017 (0.000-0.056) ng/mL Total Protein 8.1 (6.4-8.2) g/dL Albumin 4.2 (3.4-5.0) g/dL Globulin 3.9 H (2.3-3.5) g/dL Albumin/Globulin Ratio 1.1 L (1.2-2.2) Urine Opiates Screen (NEGATIVE) Ur Oxycodone Screen (NEGATIVE) Urine Methadone Screen (NEGATIVE) Ur Propoxyphene Screen (NEGATIVE) Ur Barbiturates Screen (NEGATIVE) Ur Tricyclics Screen (NEGATIVE) Ur Phencyclidine Scrn (NEGATIVE) Ur Amphetamine Screen (NEGATIVE) U Methamphetamines Scrn (NEGATIVE) Urine MDMA Screen (NEGATIVE) U Benzodiazepines Scrn (NEGATIVE) U Cocaine Metab Screen (NEGATIVE) U Marijuana (THC) Screen (NEGATIVE) Ethyl Alcohol mg/dL Influenza Type A RNA (NEGATIVE) RSV RNA (INAAT) (NEGATIVE) Influenza Type B RNA (NEGATIVE) SARS-CoV-2 RNA (PAO) (NEGATIVE) 01/03/21 01/03/21 01/03/21 Range/Units 00:05 00:21 01:30 WBC (4.5-11.0) K/uL RBC (4.30-5.90) M/uL Hgb (12.0-15.0) g/dL Hct (40.0-54.0) % MCV (80-98) fL MCH (27-31) pg MCHC (32-36) % Plt Count (150-400) K/uL Neut % (Auto) (36-66) % Lymph % (Auto) (24-44) % Wagoner % (Auto) (2-6) % Eos % (Auto) (2-4) % Baso % (Auto) (0-1) % Sodium (140-148) mmol/L Potassium (3.6-5.2) mmol/L Chloride (100-108) mmol/L Carbon Dioxide (21-32) mmol/L Anion Gap (5.0-14.0) mmol/L BUN (7-18) mg/dL Creatinine (0.8-1.3) mg/dL Est Cr Clr Drug Dosing mL/min Estimated GFR (MDRD) (>60) Glucose (74-106) mg/dL Calcium (8.5-10.1) mg/dL Total Bilirubin (0.2-1.0) mg/dL AST (15-37) U/L ALT (12-78) U/L Alkaline Phosphatase (46-116) U/L Troponin I (0.000-0.056) ng/mL Total Protein (6.4-8.2) g/dL Albumin (3.4-5.0) g/dL Globulin (2.3-3.5) g/dL Albumin/Globulin Ratio (1.2-2.2) Urine Opiates Screen Negative (NEGATIVE) Ur Oxycodone Screen Negative (NEGATIVE) Urine Methadone Screen Negative (NEGATIVE) Ur Propoxyphene Screen Negative (NEGATIVE) Ur Barbiturates Screen Negative (NEGATIVE) Ur Tricyclics Screen Negative (NEGATIVE) Ur Phencyclidine Scrn Negative (NEGATIVE) Ur Amphetamine Screen Presumptive positive H (NEGATIVE) U Methamphetamines Scrn Presumptive positive H (NEGATIVE) Urine MDMA Screen Negative (NEGATIVE) U Benzodiazepines Scrn Negative (NEGATIVE) U Cocaine Metab Screen Negative (NEGATIVE) U Marijuana (THC) Screen Presumptive positive H (NEGATIVE) Ethyl Alcohol < 3 mg/dL Influenza Type A RNA Negative (NEGATIVE) RSV RNA (INAAT) Negative (NEGATIVE) Influenza Type B RNA Negative (NEGATIVE) SARS-CoV-2 RNA (PAO) Negative (NEGATIVE) Meds: Medications Discontinued Medications Generic Name Dose Route Start Last Admin Trade Name Freq PRN Reason Stop Dose Admin Multivitamins/Minerals 10 ml/ 1,017.2 mls @ 1,000 mls/hr 01/03/21 00:15 01/03/21 00:50 Thiamine HCl 100 mg/ Folic IV 1,000 mls/hr Acid 1 mg/ Magnesium Sulfate 3 ASDIRECTED YANY Administration gm/ Sodium Chloride - Re-Assessments/Exams Free Text/Narrative Re-Assessment/Exam: 01/03/21 00:41 I do not have any objective findings of a stroke, this patient's symptoms may be related to chronic alcohol and drug abuse or possibly Covid. CBC CMP EtOH urine drug screen and Covid 4 Plex study was obtained. A head CT without contrast was also obtained. He will be given 1 L of banana bag. 01/03/21 01:49 4 Plex viral study is negative, troponin is 0, CBC normal. Patient's vitals normalized with 1 L of IV fluid, pulse is now normal. Bilirubin is mildly elevated and AST is elevated but overall chemistry panel is reassuring. Urine drug screen is pending but it suspected to be positive for methamphetamine. CT the head was negative. Patient felt much better after the IV fluids, I offered him a bed at the detox center but he declined. He was strongly encouraged to avoid further alcohol abuse and methamphetamine abuse in the future. 01/03/21 02:12 Urine did return positive for methamphetamine and marijuana. Patient ambulated out of the emergency room without symptoms or difficulty. Departure - Departure Time of Disposition: 01:54 Disposition: Home, Self-Care 01 Clinical Impression: Alcohol abuse, Dizziness, Atypical chest pain - Discharge Information Instructions: Dizziness, [id number] Referrals: Wayne Pollock MD [Primary Care Provider] - Forms: ED Department Discharge Care Plan Goals: Avoid further alcohol abuse and methamphetamine use, increase diet and activity as tolerated and you should start feeling better. Follow-up with Dr. Berrios if you feel you need help with your alcohol issues. Return to the emergency room if worsening or concerns. Sepsis Event Note (ED) - Evaluation Sepsis Screening Result: No Definite Risk - Focused Exam Vital Signs: Vital Signs Temp Temp Pulse Pulse Resp BP Pulse Ox 01/02/21 23:50 97.6 F 105 H 20 140/83 93 L 01/02/21 23:49 97.9 F 129 H 20 140/83 93 L - My Orders Last 24 Hours: My Active Orders 01/03/21 00:10 EKG 12 Lead [EK] Routine 01/03/21 00:21 Isolation [COMM] Stat - Assessment/Plan Last 24 Hours: My Active Orders 01/03/21 00:10 EKG 12 Lead [EK] Routine 01/03/21 00:21 Isolation [COMM] Stat
--- NOTE | 2021-01-03 00:43 | CRLCT ---
For Patients: As a result of the Century Cures Act, medical imaging exams and procedure reports are released immediately into your electronic medical record. You may view this report before your referring provider. If you have questions, please contact your health care provider. INDICATION: Vision changes and generalized weakness. TECHNIQUE: CT head without contrast. COMPARISON: None. FINDINGS: CSF spaces: Within normal limits for age. Brain parenchyma: The barrera-white differentiation is normal. No sign of mass, hemorrhage, or midline shift. Skull base and calvarium: Mucosal thickening paranasal sinuses. Atherosclerosis. The visualized orbits are grossly unremarkable. No skull fractures. IMPRESSION: 1. Mild sinus disease, otherwise unremarkable noncontrast head CT. Please note that all CT scans at this facility use dose modulation, iterative reconstruction, and/or weight-based dosing when appropriate to reduce radiation dose to as low as reasonably achievable. Dictated by Jefry Xavier MD @ 01/03/2021 12:41:35 AM (Electronically Signed)
[2021-01-03 01:05] LABS: CORONAVIRUS COVID-19 NAA NEGATIVE (NEGATIVE)
[2021-01-03 02:43] VITALS: BP 118/76; PULSE 78
== END 2021-01-03 02:00 | disposition home or self-care (01) ==
LOC: JP.ED 23:31
DX: F10.10 Alcohol abuse, uncomplicated (principal); R07.89 Other chest pain; I10 Essential (primary) hypertension; K21.9 Gastro-esophageal reflux disease without esophagitis; Z72.0 Tobacco use; Z79.82 Long term (current) use of aspirin; Z79.899 Other long term (current) drug therapy; Z20.822 Contact with and (suspected) exposure to COVID-19; Y90.0 Blood alcohol level of less than 20 mg/100 ml
CPT/HCPCS: 0241U; 36415; 70450; 80053; 80305; 80307; 84484; 85025; 93005; 96365; 99285; J3411; J3475; J7030; J3490

== ENCOUNTER 2021-06-10 17:42 | Emergency (ER) | payer MEDICAID ==
[2021-06-10 18:00] VITALS: BP 162/93; PULSE 138
[2021-06-10] MEDS ORDERED: Lidocaine 1% with EPINEPHrine 1:100,000 50 ML MDV INJECT ONE (18:56)
== END 2021-06-10 19:48 | disposition home or self-care (01) ==
LOC: JP.ED 17:42
DX: L03.317 Cellulitis of buttock (principal); K61.0 Anal abscess; F10.20 Alcohol dependence, uncomplicated; I10 Essential (primary) hypertension; K21.9 Gastro-esophageal reflux disease without esophagitis; Z72.0 Tobacco use; Z79.82 Long term (current) use of aspirin; Z79.899 Other long term (current) drug therapy
CPT/HCPCS: 46050; 99282; 99283-25

== ENCOUNTER 2022-04-11 17:17 | Emergency (ER) | payer MEDICAID ==
[2022-04-11 17:29] VITALS: BP 151/68; PULSE 66
[2022-04-11 18:55] LABS: ESTIMATED GFR 100 mL/min (>60); TROPONIN I HIGH SENSITIVITY 4.6 pg/mL (<=60.3)
[2022-04-11 19:10] LABS: CORONAVIRUS COVID-19 NAA NEGATIVE (NEGATIVE)
== END 2022-04-11 20:08 | disposition home or self-care (01) ==
LOC: JP.ED 17:17
DX: R07.89 Other chest pain (principal); R53.81 Other malaise; R53.83 Other fatigue; F41.9 Anxiety disorder, unspecified; F32.A Depression, unspecified; G47.33 Obstructive sleep apnea (adult) (pediatric); I10 Essential (primary) hypertension; F17.210 Nicotine dependence, cigarettes, uncomplicated; Z20.822 Contact with and (suspected) exposure to COVID-19; Z79.899 Other long term (current) drug therapy
CPT/HCPCS: 0241U; 36415; 71046; 80053; 80307; 84484; 85025; 86140; 93005; 99285

== ENCOUNTER 2024-03-22 20:55 | Emergency (ER) | payer MEDICAID ==
[2024-03-22 21:43] LABS: BASOPHILS PERCENT AUTO 0.1 % (0.1-1.3); EOSINOPHILS ABSOLUTE AUTO 0.03 K/uL (0.00-0.40); EOSINOPHILS PERCENT AUTO 0.2 % (0.0-5.4); HEMATOCRIT 42.3 % (38.4-49.7); HEMOGLOBIN 14.3 g/dL (12.9-16.9); IMMATURE GRAN ABSOLUTE AUTO 0.06 K/uL (0.00-0.23); IMMATURE GRAN PERCENT AUTO 0.4 % (0.0-0.7); LYMPHOCYTES ABSOLUTE AUTO 2.09 K/uL (0.8-3.3); LYMPHOCYTES PERCENT AUTO 15.2 % (11.4-47.7); MEAN CORPUSCULAR HGB CONC 33.8 g/dL (31.6-35.5); MEAN CORPUSCULAR VOLUME 91.8 fL (81.4-99.0); NEUTROPHILS ABSOLUTE AUTO 10.47 K/uL (1.0-7.6); NEUTROPHILS PERCENT AUTO 76.1 % (40.0-78.1); PLATELET COUNT,PLT 295 K/uL (130-375); RED BLOOD CELL COUNT 4.61 M/uL (4.14-5.76); WHITE BLOOD CELL COUNT,WBC 13.8 K/uL (3.2-11.0)
[2024-03-22 21:47] LABS: BASOPHILS ABSOLUTE AUTO 0.02 K/uL (0.00-0.10)
[2024-03-22 22:03] LABS: A/G RATIO 0.9 (1.2-2.2); ALANINE AMINOTRANSFERASE,ALT 23 U/L (12-78); ALBUMIN 4.5 g/dL (3.4-5.0); ALKALINE PHOSPHATASE 77 U/L (46-116); ASPARTATE AMNIOTRANSFERASE,AST 18 U/L (15-37); BILIRUBIN TOTAL 2.7 mg/dL (0.2-1.0); BLOOD UREA NITROGEN,BUN 19 mg/dL (7-18); CALCIUM 9.6 mg/dL (8.5-10.1); CARBON DIOXIDE,CO2 25 mmol/L (21-32); CHLORIDE,CL 93 mmol/L (100-108); CREATININE 2.7 mg/dL (0.8-1.3); EST CRCL DRUG DOSING (CG) 35.21 mL/min; ESTIMATED GFR 26 mL/min (>60); GLUCOSE RANDOM 151 mg/dL (74-106); POTASSIUM,K 3.3 mmol/L (3.6-5.2); PROTEIN TOTAL,TP 9.7 g/dL (6.4-8.2); SODIUM,NA 134 mmol/L (140-148)
[2024-03-22 22:05] LABS: ANION GAP 19.3 mmol/L (5.0-14.0)
[2024-03-22] MEDS: Diazepam 2 MG Tab PO ONE (22:05)
[2024-03-22] MEDS: Ondansetron 4 MG/2 ML SDV IVPUSH ONE (22:34)
[2024-03-22] MEDS: Sodium Chloride 0.9% 1,000 ML IV STA (22:35)
[2024-03-23] MEDS ORDERED: Diazepam 2 MG Tab ONE (00:14)
[2024-03-23] MEDS: Diazepam 5 MG Tab PO ONE (00:21)
[2024-03-23 00:23] VITALS: BP 126/59; PULSE 89
== END 2024-03-23 00:29 | disposition home or self-care (01) ==
LOC: JP.ED 20:55
DX: F10.231 Alcohol dependence with withdrawal delirium (principal); I10 Essential (primary) hypertension; N17.9 Acute kidney failure, unspecified; F17.210 Nicotine dependence, cigarettes, uncomplicated; Z79.51 Long term (current) use of inhaled steroids; Z79.82 Long term (current) use of aspirin; Z79.899 Other long term (current) drug therapy; Y90.9 Presence of alcohol in blood, level not specified
CPT/HCPCS: 36415; 70450; 80053; 85025; 96361; 96374; 99284; 99285-25; A9270-GY; J2405

== ENCOUNTER 2024-10-30 03:06 | Emergency (ER) | payer MEDICAID ==
[2024-10-30 03:51] LABS: BASOPHILS ABSOLUTE AUTO 0.02 K/uL (0.00-0.10); BASOPHILS PERCENT AUTO 0.1 % (0.1-1.3); EOSINOPHILS ABSOLUTE AUTO 0.10 K/uL (0.00-0.40); EOSINOPHILS PERCENT AUTO 0.6 % (0.0-5.4); IMMATURE GRAN ABSOLUTE AUTO 0.09 K/uL (0.00-0.23); IMMATURE GRAN PERCENT AUTO 0.5 % (0.0-0.7); LYMPHOCYTES ABSOLUTE AUTO 1.77 K/uL (0.8-3.3); LYMPHOCYTES PERCENT AUTO 9.9 % (11.4-47.7); MONOCYTES ABSOLUTE AUTO 1.13 K/uL (0.20-0.90); MONOCYTES PERCENT AUTO 6.3 % (3.3-12.6); NEUTROPHILS ABSOLUTE AUTO 14.70 K/uL (1.0-7.6); NEUTROPHILS PERCENT AUTO 82.6 % (40.0-78.1); PLATELET COUNT,PLT 172 K/uL (130-375); RED BLOOD CELL COUNT 3.77 M/uL (4.14-5.76); WHITE BLOOD CELL COUNT,WBC 17.8 K/uL (3.2-11.0)
[2024-10-30 04:08] LABS: BLOOD UREA NITROGEN,BUN 11.0 mg/dL (7-18); CARBON DIOXIDE,CO2 24.0 mmol/L (21-32); CHLORIDE,CL 98.0 mmol/L (100-108); CREATININE 0.8 mg/dL (0.8-1.3); EST CRCL DRUG DOSING (CG) 117.36 mL/min; ESTIMATED GFR 101.0 mL/min (>60); GLUCOSE RANDOM 125.0 mg/dL (74-106); POTASSIUM,K 3.4 mmol/L (3.6-5.2); SODIUM,NA 133.0 mmol/L (140-148)
[2024-10-30] MEDS: Sodium Chloride 0.9% 10 ML Syringe FLUSH PRN (04:14)
[2024-10-30] MEDS: Iopamidol 612 MG/ML 100 ML Bottle IV SCH (04:14)
[2024-10-30 04:44] LABS: LACTIC ACID 1.2 mmol/L (0.4-2.0)
[2024-10-30] MEDS ORDERED: Naloxone 0.4 MG/ML SDV IVPUSH PRN (06:19)
[2024-10-30 07:58] VITALS: BP 119/70; PULSE 116
== END 2024-10-30 08:10 ==
LOC: JP.ED 03:06
DX: K61.1 Rectal abscess (principal); I10 Essential (primary) hypertension; K21.9 Gastro-esophageal reflux disease without esophagitis; F17.200 Nicotine dependence, unspecified, uncomplicated; Z95.5 Presence of coronary angioplasty implant and graft; Z79.82 Long term (current) use of aspirin; Z79.51 Long term (current) use of inhaled steroids; Z79.899 Other long term (current) drug therapy
CPT/HCPCS: 36415; 72193; 80048; 83605; 85025; 86140; 87040; 96365; 96366; 96367; 96375; 99284; J1171; J2543; J3373; J7030; J7040; Q9967

== ENCOUNTER 2024-12-09 15:57 | Emergency (ER) | payer MEDICAID, OTHER ==
[2024-12-09] MEDS ORDERED: Naloxone 0.4 MG/ML SDV IVPUSH PRN ×2 (17:34→23:19)
[2024-12-09] MEDS: Ondansetron 4 MG/2 ML SDV IVPUSH ONE (18:13)
[2024-12-09 18:17] LABS: BASOPHILS ABSOLUTE AUTO 0.05 K/uL (0.00-0.10); BASOPHILS PERCENT AUTO 0.3 % (0.1-1.3); EOSINOPHILS ABSOLUTE AUTO 0.04 K/uL (0.00-0.40); EOSINOPHILS PERCENT AUTO 0.2 % (0.0-5.4); IMMATURE GRAN ABSOLUTE AUTO 0.12 K/uL (0.00-0.23); IMMATURE GRAN PERCENT AUTO 0.7 % (0.0-0.7); LYMPHOCYTES ABSOLUTE AUTO 1.47 K/uL (0.8-3.3); LYMPHOCYTES PERCENT AUTO 8.3 % (11.4-47.7); MONOCYTES ABSOLUTE AUTO 2.31 K/uL (0.20-0.90); MONOCYTES PERCENT AUTO 13.1 % (3.3-12.6); NEUTROPHILS ABSOLUTE AUTO 13.69 K/uL (1.0-7.6); NEUTROPHILS PERCENT AUTO 77.4 % (40.0-78.1); PLATELET COUNT,PLT 201 K/uL (130-375); RED BLOOD CELL COUNT 3.74 M/uL (4.14-5.76); WHITE BLOOD CELL COUNT,WBC 17.7 K/uL (3.2-11.0)
[2024-12-09 18:19] LABS: APPEARANCE,URINE CLEAR (CLEAR); GLUCOSE,URINE NEGATIVE (NEGATIVE); OCCULT BLOOD,URINE NEGATIVE (NEGATIVE)
[2024-12-09 18:24] LABS: AMPHETAMINES SCREEN, URINE NEGATIVE (NEGATIVE); METHADONE SCREEN, URINE NEGATIVE (NEGATIVE); METHAMPHETAMINES SCREEN, URINE NEGATIVE (NEGATIVE); OXYCODONE SCREEN,URINE NEGATIVE (NEGATIVE); PROPOXYPHENE SCREEN,URINE NEGATIVE (NEGATIVE); THC SCREEN,URINE 50 NG/ML PRESUMPTIVE POSITIVE (NEGATIVE)
[2024-12-09 18:26] LABS: SQUAMOUS EPITHELIAL CELLS,UR NOT SEEN /HPF; UROTHELIAL CELLS,URINE NOT SEEN /HPF
[2024-12-09 18:31] LABS: A/G RATIO 0.7 (1.2-2.2); ALANINE AMINOTRANSFERASE,ALT 18 U/L (12-78); ASPARTATE AMNIOTRANSFERASE,AST 17 U/L (15-37); BILIRUBIN TOTAL 1.1 mg/dL (0.2-1.0); BLOOD UREA NITROGEN,BUN 6 mg/dL (7-18); CARBON DIOXIDE,CO2 25 mmol/L (21-32); CHLORIDE,CL 103 mmol/L (100-108); CREATININE 0.7 mg/dL (0.8-1.3); EST CRCL DRUG DOSING (CG) 134.13 mL/min; ESTIMATED GFR 105 mL/min (>60); GLUCOSE RANDOM 113 mg/dL (74-106); POTASSIUM,K 3.6 mmol/L (3.6-5.2); PROTEIN TOTAL,TP 8.1 g/dL (6.4-8.2); SODIUM,NA 139 mmol/L (140-148)
[2024-12-09] MEDS: Iopamidol 612 MG/ML 100 ML Bottle IV ONE (19:11)
[2024-12-09] MEDS: Sodium Chloride 0.9% 10 ML Syringe FLUSH ONE (19:11)
[2024-12-10] MEDS: LORazepam 2 MG/ML SDV IVPUSH ONE ×2 (00:20→02:59)
[2024-12-10] MEDS: Metoprolol Tartrate 5 MG/5 ML SDV IVPUSH ONE (03:49)
[2024-12-10] MEDS: Heparin Sodium 5,000 Units/ML Vial IVPUSH ONE (03:52)
[2024-12-10 04:20] VITALS: BP 160/94; PULSE 119
== END 2024-12-10 04:36 | disposition other institution (70) ==
LOC: JP.EDOUT 15:57 → JP.ED 15:57 → EDSTATUS 21:31 → JP.EDOUT 12-10 04:36 → JP.ED 12-10 04:36
DX: K61.1 Rectal abscess (principal); R07.9 Chest pain, unspecified; I10 Essential (primary) hypertension; K21.9 Gastro-esophageal reflux disease without esophagitis; F17.200 Nicotine dependence, unspecified, uncomplicated; Z79.899 Other long term (current) drug therapy; Z79.82 Long term (current) use of aspirin
CPT/HCPCS: 36415; 51702; 74177; 80053; 80305; 80307; 81001; 83605; 83690; 84484; 85025; 85730; 86140; 87040; 93005; 96361; 96365; 96366; 96374; 96375; 96376; 99285; A9270; J1171; J1644; J2060; J2405; J2543; J3373; J3490; J7030; J7040; Q9967; 93010